=== PATIENT | female | born 2000 | race Native Hawaiian/Other Pacific Islander ===

== ENCOUNTER 2022-04-16 21:09 | Emergency (ER) | payer OTHER ==
[~2022-04-16] VITALS: Ht 152.4 cm; Wt 45.4 kg
[2022-04-16 21:54] LABS: PLATELET COUNT 137 K/uL (152-353)
[2022-04-16 22:08] LABS: POTASSIUM 3.3 mmol/L (3.6-5.2)
[2022-04-17 01:25] VITALS: BP 8/39; TEMP 98.7
== END 2022-04-17 01:30 | disposition home or self-care (01) ==
LOC: ED 21:09
PROVIDERS: Hospitalist
DX: R50.9 Fever, unspecified (principal); Z3A.20 20 weeks gestation of pregnancy; U07.1 COVID-19; R11.2 Nausea with vomiting, unspecified
CPT/HCPCS: 36415; 80053; 80307; 80320; 81002; 81015; 84702; 85027; 85610; 85730; 87077; 87088; 87502; 87635; 87651; 96360; 96361; 96365; 99284; J0696; J2405; U0003